=== PATIENT | female | born 1975 | race Caucasian/White ===

== ENCOUNTER 2023-04-19 17:59 | Emergency (ER) | payer BC ==
[~2023-04-19] VITALS: Ht 152.4 cm; Wt 59.0 kg
[2023-04-19] MEDS ORDERED: PEPCID AC20 MG PO (20:15)
[2023-04-19] MEDS ORDERED: ONDANSETRON ODT8 MG PO (20:15)
== END 2023-04-19 20:28 | disposition home or self-care (01) ==
LOC: ER 17:59
DX: K52.9 Noninfective gastroenteritis and colitis, unspecified (principal)